=== PATIENT | female | born 1950 | race Caucasian/White ===

== ENCOUNTER 2019-01-22 11:40 | Emergency (ER) | payer MEDICARE, BC ==
[2019-01-22 11:56] VITALS: BP 112/63
--- NOTE | 2019-01-22 12:17 | UC ---
Shoulder Pain HPI - HPI Summary HPI Summary: 68 y/o female presents to the urgent care c/o left shoulder pain for the past 6- 8 weeks. Pt did fall 2 weeks prior to the pain started and fell on her shoulder and left knee. Pt states she has had some massages w/o any improvement. Pt does have some limitation with left arm movement, specially raising her arm. Pt wakes from the pain every am from the pain. She has been taken Aleve and Tylenol PO daily which seems to help at times. Pt states also mild numbness and tingling at times. Pain today is dull, 3/10 w/o any radiation. Pt denies fever, SOB, dizziness, chest pain,abdominal pain, N/V/D, neck pain - History of Current Complaint Chief Complaint: UCUpperExtremity Stated Complaint: L SHOULDER PAIN Time Seen by Provider: 01/22/19 12:00 Hx Obtained From: Patient ?: No Onset/Duration: Gradual Onset, Lasting Weeks - 2 months, Still Present, Worse Since - 6 days ago Timing: Constant Severity Initially: Mild Severity Currently: Moderate Location Of Pain: Is Discrete @ - left shoulder Pain Intensity: 3 Pain Scale Used: 0-10 Numeric Character: Sharp Aggravating Factor(s): Movement, Lifting, Extension Alleviating Factor(s): Rest, Ice, OTC Meds Associated Signs And Symptoms: Positive: Numbness/Tingling - mild at times. Negative: Swelling, Redness, Bruising, Fever, Weakness Related History: Dominant Hand Right - Risk Factors Non-Orthopedic Risk Factor: Negative DVT Risk Factors: Negative Septic Arthritis Risk Factor: Negative - Allergies/Home Medications Allergies/Adverse Reactions: Allergies Allergy/AdvReac Type Severity Reaction Status Date / Time Penicillins Allergy Swelling Verified 01/22/19 11:57 Home Medications: Home Medications Acetaminophen [Tylenol] 650 mg PO Q4HR PRN 01/22/19 [History Confirmed 01/22/19] Atorvastatin* [Lipitor 10 MG*] 10 mg PO 1700 01/22/19 [History Confirmed ] Citalopram Hydrobromide [Celexa] 40 mg PO DAILY 01/22/19 [History Confirmed 09/11] Levothyroxine TAB* [Synthroid 150 MCG TAB*] 150 mcg PO DAILY 01/22/19 [History Confirmed 01/22/19] PMH/Surg Hx/FS Hx/Imm Hx Previously Healthy: Yes Endocrine History: Hypothyroidism, Dyslipidemia Psychological History: Anxiety, Depression - Surgical History Surgical History: None - Family History Known Family History: Positive: Hypertension Family History: Stroke - Social History Alcohol Use: Occasionally Substance Use Type: Marijuana Smoking Status (MU): Light Every Day Tobacco Smoker Review of Systems All Other Systems Reviewed And Are Negative: Yes Constitutional: Positive: Negative Skin: Positive: Negative Eyes: Positive: Negative ENT: Positive: Negative Respiratory: Positive: Negative Cardiovascular: Positive: Negative Gastrointestinal: Positive: Negative Genitourinary: Positive: Negative Motor: Positive: Negative Neurovascular: Positive: Negative Musculoskeletal: Positive: Decreased ROM - left shoulder, Other: - left shoulder pain Neurological: Positive: Negative Psychological: Positive: Negative Is Patient Immunocompromised?: No Physical Exam - Summary Physical Exam Summary: Vital Signs Reviewed: Yes GENERAL: Well-Appearing, No Pain Distress, Well-Nourished obese female w/o any apparent pain distress Eyes: Positive: Conjunctiva Clear - PERRL,EOMI ENT: Positive: Normal ENT inspection, Hearing grossly normal, Pharyngeal erythema - mild, Nasal drainage - clear, Uvula midline Neck: Positive: Supple, Nontender, No Lymphadenopathy Respiratory: Positive: Chest non-tender, Lungs clear, Normal breath sounds, No respiratory distress Cardiovascular: Positive: RRR, No Murmur, Pulses Normal, Brisk Capillary Refill Abdomen Description: Positive: Nontender, No Organomegaly, Soft. Negative: CVA Tenderness (R), CVA Tenderness (L) Bowel Sounds: Positive: Present Musculoskeletal: LF shoulder: The L shoulder is without obvious asymmetry or deformity when compared to the R shoulder. No ecchymosis and bruising, no crepitus. No bony deformity or prominence of humeral head. No erythema, warmth. No Point Tenderness to palpation over the clavicle, or scapula. positive tenderness over Acromioclavicular joint and humeral head with mild swelling, NT to palpation of the bicipital groove . NT to palpation of the muscles of the sternocleidomastoid, pectoralis, biceps/triceps, deltoid, trapezius, . Limited ROM due to pain especially in adduction and abduction.on both passive and active, internal/external rotation, flexion/extension. "empty can and drop arm test unable to perform due to pain. No axillary tenderness or lymphadenopathy. Normal sensation over the deltoid and fingers. Distal motor and neurovascular status is intact. Neurological Exam: Normal Psychological Exam: Normal Skin Exam: Normal Triage Information Reviewed: Yes Vital Signs: Initial Vital Signs Temp 98.4 F 01/22/19 11:48 Pulse 73 01/22/19 11:48 Resp 16 01/22/19 11:48 BP 112/63 01/22/19 11:48 Pulse Ox 100 01/22/19 11:48 Shoulder Course/Dx - Course Course Of Treatment: 68 y/o female presents to the urgent care c/o left shoulder pain for the past 6- 8 weeks. Pt did fall 2 weeks prior to the pain started and fell on her shoulder and left knee. Pt states she has had some massages w/o any improvement. Pt does have some limitation with left arm movement, specially raising her arm. Pt wakes from the pain every am from the pain. She has been taken Aleve and Tylenol PO daily which seems to help at times. Pt states also mild numbness and tingling at times. Pain today is dull, 3/10 w/o any radiation. Pt denies fever, SOB, dizziness, chest pain,abdominal pain, N/V/D, neck pain. Hx obtained. LF shoulder X-ray ordered:IMPRESSION: OSTEOARTHRITIS. NO ACUTE OSSEOUS INJURY. IF SYMPTOMS PERSIST, RECOMMEND REPEAT IMAGING as per radiologist. Pt's Rx Naproxen PO to alleviate symptoms. Shoulder immobilized with a shoulder sling for 3-4 days. Advised to f/u with Orthopedic DR Fernandez or Sports medicine for further evaluation and treatment.D/c instructions explained. Pt understood and agreed w/ plan of care. - Differential Dx/Diagnosis Differential Diagnosis/HQI/PQRI: Contusion, Fracture (Closed), Rotator Cuff Injury, Sprain, Strain, Tendonitis Provider Diagnosis: Left shoulder pain, Osteoarthritis of left shoulder Discharge - Sign-Out/Discharge Documenting (check all that apply): Patient Departure - D/C home All imaging exams completed and their final reports reviewed: Yes - Discharge Plan Condition: Good Disposition: HOME Prescriptions: Naproxen TAB* [Naprosyn 250 mg TAB*] 250 mg PO Q8H PRN #30 tab PRN Reason: shoulder pain Patient Education Materials: Osteoarthritis (ED), Shoulder Pain (ED) Referrals: Lena Rivera MD [Primary Care Provider] - 3 Days Additional Instructions: 1-Please take Naproxen PO as directed after meals to alleviate pain and swelling. 2-Please apply ice, keep your shoulder immobilized with the shoulder sling for 3-4 days and then resume movement slowly. 3- Please f/u with Orthopedic DR Fernandez or from Sports Medicine in 3-4 days for further evaluation and treatment, you can benefit from some physical therapy . - Billing Disposition and Condition Condition: GOOD Disposition: Home
== END 2019-01-22 13:31 | disposition home or self-care (01) ==
LOC: UCCORT 11:40
DX: M19.012 Primary osteoarthritis, left shoulder (principal); E78.5 Hyperlipidemia, unspecified; E03.9 Hypothyroidism, unspecified; F41.9 Anxiety disorder, unspecified; F32.9 Major depressive disorder, single episode, unspecified
CPT/HCPCS: 99213; G0463

== ENCOUNTER 2019-07-23 09:26 | Day surgery (SDC) | payer MEDICARE, BC ==
[~2019-07-23 09:26] MED LIST: Buffered Lidocaine 1% SYRIN* 1 ML/SYRINGE INTRADERM ONE; Dexamethasone IV* 4 MG/ML 1 ML (4 MG) IV SLOW PU ONE; Famotidine IV* 10 MG/ML 2 ML (20 mg) IV ONE; Lactated Ringers 1000 ML Bag* 1,000 ML IV SCH
[2019-07-23] MEDS ORDERED: Dexamethasone IV* 4 MG/ML 1 ML (4 MG) ONE (10:08)
[2019-07-23] MEDS ORDERED: Buffered Lidocaine 1% SYRIN* 1 ML/SYRINGE INTRADERM ONE (10:08)
[2019-07-23] MEDS ORDERED: Famotidine IV* 10 MG/ML 2 ML (20 mg) ONE (10:08)
[2019-07-23] MEDS ORDERED: Clindamycin 900 MG/D5W BAG(*) 900 MG/50 ML BAG IVPB ONE (10:08)
[2019-07-23] MEDS ORDERED: Atracurium* 10 MG/ML 10 ML VIAL ONE (10:52)
[2019-07-23] MEDS ORDERED: Midazolam* 1 MG/ML 5 ML VIAL (5 MG) ONE (10:52)
[2019-07-23] MEDS ORDERED: fentaNYL* 50 MCG/ML 2 ML VIAL (100 MCG VIAL) ONE ×3 (10:52→13:37)
[2019-07-23] MEDS ORDERED: Ondansetron INJ* 2 MG/ML VIAL ONE (10:53)
[2019-07-23] MEDS ORDERED: Propofol* 10 MG/ML 20 ML BTL ONE (10:53)
[2019-07-23] MEDS ORDERED: EPINEPHRINE 1 MG/ML 1 ML VIAL ONE (11:59)
[2019-07-23] MEDS ORDERED: Bupivacaine 0.25% EPI 200,000* 30 ML SDV ONE (11:59)
[2019-07-23] MEDS ORDERED: ROPIVACAINE 5 MG/ML 30 ML BTL (0.5%) ONE (12:10)
[2019-07-23] MEDS ORDERED: oxyCODONE/Acetamin 5/325 MG* TAB PO PRN (13:33)
[2019-07-23] MEDS ORDERED: HYDROmorphone INJ1* 1 MG/ML SYRINGE IV PRN (13:33)
[2019-07-23] MEDS ORDERED: Scopolamine 1.5 mg* PATCH TRANSDERM PRN (13:33)
[2019-07-23] MEDS ORDERED: Ondansetron INJ* 2 MG/ML VIAL IV PRN (13:33)
[2019-07-23] MEDS ORDERED: DiMENhydriNATE IV* 50 MG/ML VIAL IV PUSH PRN (13:33)
[2019-07-23] MEDS ORDERED: fentaNYL* 50 MCG/ML 2 ML VIAL (100 MCG VIAL) IV PRN (13:33)
[2019-07-23] MEDS ORDERED: Naloxone* 0.4 MG/ML 1 ML VIAL IV PRN (13:33)
[2019-07-23] MEDS ORDERED: Metoprolol Tartrate IV* 1 MG/ML 5 ML VIAL ONE (13:37)
[2019-07-23 16:18] VITALS: BP 129/69
--- NOTE | 2019-07-24 20:23 | OP ---
DATE OF OPERATION: 07/23/19 - SDS DATE OF : 50 SURGEON: Alexandre Parisi MD AUTOMOTIVE SERVICE PORTER: JEAN Parmar. A physician state tested nursing assistant was required for the length of the procedure for assistance with patient positioning, retraction, instrumentation, and closure. ANESTHESIOLOGIST: Dr. Terrell. ANESTHESIA: General anesthesia, regional interscalene block anesthesia. PRE-OP DIAGNOSES: 1. Left shoulder rotator cuff tendinitis. 2. Left shoulder partial-thickness rotator cuff tendon tear, interstitial, likely, supraspinatus. 3. Left shoulder subacromial impingement and bursitis. 4. Left shoulder acromioclavicular joint osteoarthritis. 5. Left shoulder stiffness, capsulitis. 6. Possible left shoulder biceps tendinosis or superior labrum tear. POST-OP DIAGNOSES: 1. Left shoulder rotator cuff tendinitis. 2. Left shoulder rotator cuff tendon tear, supraspinatus, low-grade partial- thickness undersurface tear. 3. Left shoulder subacromial impingement and bursitis. 4. Left shoulder acromioclavicular joint osteoarthritis. 5. Left shoulder significant proximal biceps tendinosis. 6. Left shoulder stiffness, capsulitis. 7. Left shoulder focal articular cartilage injury, superior humeral head. OPERATIVE PROCEDURE: 1. Left shoulder arthroscopic rotator cuff tendon repair with Regeneten biologic patch. 2. Left shoulder arthroscopic subacromial decompression. 3. Left shoulder arthroscopic distal clavicle resection. 4. Left shoulder arthroscopic debridement articular cartilage debridement, humeral head, superior, as well as undersurface rotator cuff. 5. Left shoulder arthroscopic lysis of adhesions including debridement of rotator cuff interval along with manipulation under anesthesia. INDICATIONS: The patient is a 68-year-old woman right-hand dominant with pain for at least 7 months since a fall in November 2018. The patient failed to respond to the full spectrum of nonoperative treatment and opted for surgery. I discussed risks and potential complications of surgery. ANTIBIOTICS: Clindamycin 900 mg IV. IV FLUIDS: See Anesthesia note. [id number] TIME: 69 minutes. SPECIMEN: None. IMPLANTS: [employer] Regeneten biologic patch size large. COMPLICATIONS: None. ESTIMATED BLOOD LOSS: Minimal. DESCRIPTION OF PROCEDURE: In preoperative holding, the patient signed a written consent. Operative extremity was marked in preoperative holding. The patient underwent an interscalene regional nerve block by Dr. Terrell. The patient was next taken to the operating room where she was sedated and intubated. The patient was turned to the lateral decubitus position, left shoulder up. Axillary roll. Bony prominences padded. Lateral longitudinal traction, 15 pounds. Appropriate amount of forward flexion and abduction shoulder. Prior to being placed in the lateral decubitus position, because at the patient' s last clinic note, she had incomplete range of motion, I performed a mini time- out and then an exam under anesthesia. On my exam under anesthesia, the patient had only 160 degrees of forward flexion as it had been the case preoperatively. I therefore performed manipulation under anesthesia. This manipulation produced crackling and popping, palpable, and got her to 180 degrees of forward flexion. I then easily reached 90 degrees of external and 70 degrees of internal rotation without any further trauma to the shoulder. Once the patient was set up in the lateral decubitus position, we prepped and draped and did a surgical time-out. Placed spinal needle into the glenohumeral joint from posterior and infused 30 cc of normal saline. Then established posterior portal. Started my diagnostic arthroscopy. The patient had some grade 1 or grade 1 to 2 wear about the articular cartilage of the glenoid and humeral head. More focally about the superior aspect of the humeral head just adjacent to the supraspinatus footprint , the patient had a small focal area of articular cartilage grade 3 to 4 injury and what could be slightly unstable articular cartilage. The patient's biceps tendon was very hyperemic and swollen along the length of the biceps tendon and certainly at its anchor. Established anterior glenohumeral joint portal under direct visualization. I brought arthroscopic scissors in and released the biceps tendon at its origin. Preoperatively, the patient and I decided on biceps release rather than tenodesis. I used an arthroscopic shaver and debrided tissue in the rotator cuff interval, because of the patient's preoperative stiffness requiring manipulation under anesthesia as well. There was some element of capsulitis in this patient. I then examined the rotator cuff. There was some area of undersurface tearing approximately 5 to 6 mm in width from medial to lateral, I classified this as low grade or possibly medium grade. Really more low grade. I used an arthroscopic shaver to debride that possibly unstable articular cartilage, grade 3 to 4, and to smooth out the undersurface of the rotator cuff in that location. I marked out rotator cuff deficit with a spinal needle. Moved to the subacromial space, anterior and posterior, then established lateral and posterolateral portals under direct visualization. This patient had some subacromial bursitis, which was debrided with an arthroscopic shaver. I visualized my spinal needle. There was no bursal-sided tearing in the rotator cuff. No clear palpable weakness in that area as I probed it with a probe and switching stick. It was notable, the patient's subacromial space not having a particularly large amount of clearance between the acromion and the rotator cuff. This was along the length of the subacromial space from anterior to posterior, not just anterior where there was a clear hook visualized on preoperative imaging. This was slightly surprising. I had fully debrided all synovium off the superior aspect of the rotator cuff and was looking just at rotator cuff. I placed an arthroscopic bur and flattened out the anterior aspect of the acromion. Then, through a lateral portal, I placed a Regeneten patch size large and tipped in place with PLLA makeda. The patch was incredibly stable appearing. I next moved to the AC joint and debrided synovitic tissue with a cautery device and then removed 8 mm of the distal end of the clavicle with an arthroscopic bur. I then rechecked the patch and found it again to be very stable. Removed instruments and fluid from subacromial space. Closed skin incisions with figure -of- eight and 12 stitches using nylon 3-0 suture. Xeroform, 4x4s, ABDs, foam tape, sling with abduction pillow. The patient was awakened, extubated, and transferred to the PACU. DISPOSITION: Percocet as needed for pain control. Physical therapy. Sling. Follow up in 10 to 14 days. [id number]/[facility] #: [id number] KELIN
== END 2019-07-23 16:22 | disposition home or self-care (01) ==
LOC: OR 09:26
PROVIDERS: ATTEND Orthopaedic Surgery
DX: S46.012A Strain of muscle(s) and tendon(s) of the rotator cuff of left shoulder, initial encounter (principal); M75.42 Impingement syndrome of left shoulder; M75.52 Bursitis of left shoulder; M19.012 Primary osteoarthritis, left shoulder; M75.22 Bicipital tendinitis, left shoulder; G89.18 Other acute postprocedural pain; W19.XXXA Unspecified fall, initial encounter; Y92.9 Unspecified place or not applicable; G47.33 Obstructive sleep apnea (adult) (pediatric); E03.9 Hypothyroidism, unspecified; R25.1 Tremor, unspecified; F32.9 Major depressive disorder, single episode, unspecified; F17.210 Nicotine dependence, cigarettes, uncomplicated; R73.03 Prediabetes
CPT/HCPCS: C1713; J1100; J2250; J2405; J2704; J2795; J3010; J3490

== ENCOUNTER 2019-09-23 14:44 | Emergency (ER) | payer MEDICARE, BC ==
--- OUTSIDE RECORDS SUMMARY | 2019-09-23 16:17 | XMS REPORT | Continuity of Care Document ---
:1950 External Reference #:[id number] Author Name Alexandre Parisi MD (transmitted by agent of provider Heidi Melara) Address [address] [place] [id number] Care Team Providers Name Role Phone Lena Rivera MD - Internal Medicine Care Team Information Bus Assistant Problems Description No Information Available Social History Type Date Description Comments Sex Unknown ETOH Use Occasionally consumes alcohol Tobacco Use Start: Unknown End: Patient is a former Unknown smoker Recreational Drug Use Sporadically uses used to see if it Marijuana helped with hand tremors-ineffective Smoking Status Reviewed: 08/06/19 Patient is a former smoker Exercise Type/Frequency Exercises regularly walks dog 3-4 times per week Allergies, Adverse Reactions, Alerts Active Allergies Reaction Severity Comments Date Penicillin 09/19/2018 Medications Active Medications SIG Qnty Indications Ordering Provider Date Oxycodone-Acetaminophen 1-2 tabs by 30tabs Luca Regalado MD 07/23/2019 mouth every 4 5-325mg Tablets hours for pain Celexa 1 by mouth Unknown 40mg Tablets every day Levothyroxine Sodium 1 by mouth Unknown 112mcg every day Tablets Lipitor 1 every at Unknown 20mg Tablets night Medications Administered in Office Medication SIG Qnty Indications Ordering Provider Date Depomedrol 40MG Ava Leon MD 02/26/2019 Injection Immunizations Description No Information Available Vital Signs Date Vital Result Comment 08/06/2019 1:58pm Height 66 inches 5'6" Weight 199.00 lb stated Heart Rate 78 /min BP Systolic 128 mmHg BP Diastolic 72 mmHg Respiratory Rate 12 /min Body Temperature 98.8 F Pain Level 1 to two, sporatic BMI (Body Mass Index) 32.1 kg/m2 06/27/2019 9:14am Height 66 inches 5'6" Weight 199.00 lb Heart Rate 72 /min BP Systolic 118 mmHg BP Diastolic 62 mmHg Respiratory Rate 18 /min Body Temperature 97.5 F Pain Level 3 sharp pain with movement BMI (Body Mass Index) 32.1 kg/m2 Results Description No Information Available Procedures Date Code Description Status 02/26/2019 92154 Inj/Aspir Major JT Or Bursa W/ US Completed 02/06/2019 27114 Ultrasound, Extremity, Nonvascular, Real-Time W/Image Completed Doc,Limited Medical Devices Description No Information Available Encounters Type Date Location Provider Dx Diagnosis Office Visit 06/27/2019 [facility] Alexandre Honeycutt S46.012D Strain of 9:00a at MD anjelica Yarbrough/tend the rotator cuff of left shoulder, subs M75.42 Impingement syndrome of left shoulder Office Visit 06/11/2019 2:50p [facility] Ava Leon [id number] Strain of Of Mixer Tender AT MD dejesus/kirsty the [place] rotator cuff of left shoulder, subs Office Visit 05/15/2019 9:50a [facility] Ava Leon [id number] Strain of Of Mixer Tender AT MD dejesus/tend the [place] rotator cuff of left shoulder, subs Office Visit 05/08/2019 9:50a [facility] Ava Leon [id number] Strain of Of Mixer Tender AT MD dejesus/tend the [place] rotator cuff of left shoulder, subs Office Visit 03/27/2019 11:30a Sports Medicine Ava Leon [id number] Strain of Of Mixer Tender AT MD dejesus/tend the [place] rotator cuff of left shoulder, subs Office Visit 02/26/2019 1:30p [facility] Medicine Ava Leon [id number] Strain of Of Mixer Tender AT MD dejesus/tend the [place] rotator cuff of left shoulder, subs Office Visit 02/06/2019 10:10a [facility] Medicine Carey Rider6.012A Strain of Of Mixer Tender AT MD dejesus/kirsty the [place] rotator cuff of left shoulder, init Assessments Date Code Description Provider 08/06/2019 S46.012D Strain of muscle(s) and tendon(s) of the Alexandre Parisi MD rotator cuff of left shoulder, subsequent encounter 08/06/2019 M75.42 Impingement syndrome of left shoulder Alexandre Parisi MD 06/27/2019 S46.012D Strain of muscle(s) and tendon(s) of the Alexandre Parisi MD rotator cuff of left shoulder, subsequent encounter 06/27/2019 M75.42 Impingement syndrome of left shoulder Alexandre Parisi MD 06/11/2019 S46.012D Strain of muscle(s) and tendon(s) of the Ava Leon MD rotator cuff of left shoulder, subsequent encounter 05/15/2019 S46.012D Strain of muscle(s) and tendon(s) of the Ava Leon MD rotator cuff of left shoulder, subsequent encounter 05/08/2019 S46.012D Strain of muscle(s) and tendon(s) of the Ava Leon MD rotator cuff of left shoulder, subsequent encounter 03/27/2019 S46.012D Strain of muscle(s) and tendon(s) of the Ava Leon MD rotator cuff of left shoulder, subsequent encounter 02/26/2019 S46.012D Strain of muscle(s) and tendon(s) of the Ava Leon MD rotator cuff of left shoulder, subsequent encounter 02/06/2019 S46.012A Strain of muscle(s) and tendon(s) of the Ava Leon MD rotator cuff of lef Plan of Treatment Future Appointment(s):09/03/2019 1:15 pm - Alexandre Parisi MD at [facility]/06/2019 - Alexandre Parisi, [id number] Strain of muscle(s) and tendon(s) of the rotator cuff of left shoulder, subsequent encounterFollow up:Follow up: 4 [id number] Impingement syndrome of left shoulder Functional Status Description No Information Available Mental Status Description No Information Available Referrals Refer to Dr Reason for Referral Status Appt Date Alexandre Parisi MD Persistent rotator cuff tendinosis with Sent 2018 associated interstitial tearing. Failed conservative treatment of injection and physical therapy. [address] [place] [address] [phone]
--- OUTSIDE RECORDS SUMMARY | 2019-09-23 16:17 | XMS REPORT | Continuity of Care Document ---
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 [phone] Problems Description No Information Available Social History Type Date Description Comments Sex Unknown ETOH Use Occasionally consumes alcohol Tobacco Use Start: Unknown End: Patient is a former Unknown smoker Recreational Drug Use Sporadically uses used to see if it Marijuana helped with hand tremors-ineffective Smoking Status Reviewed: 09/03/19 Patient is a former smoker Exercise Type/Frequency Exercises regularly walks dog 3-4 times per week Allergies, Adverse Reactions, Alerts Active Allergies Reaction Severity Comments Date Penicillin 09/19/2018 Medications Active Medications SIG Qnty Indications Ordering Provider Date Celexa 1 by mouth Unknown 40mg Tablets every day Levothyroxine Sodium 1 by mouth Unknown 112mcg every day Tablets Lipitor 1 every at Unknown 20mg Tablets night History Medications Oxycodone-Acetaminophen 1-2 tabs by 30tabs Luca Regalado, 07/23/2019 - 5-325mg Tablets mouth every MD 09/02/2019 4 hours for pain Medications Administered in Office Medication SIG Qnty Indications Ordering Provider Date Depomedrol 40MG Ava Leon MD 02/26/2019 Injection Immunizations Description No Information Available Vital Signs Date Vital Result Comment 09/03/2019 1:19pm Height 66 inches 5'6" Weight 199.00 lb Heart Rate 80 /min BP Systolic 106 mmHg BP Diastolic 65 mmHg Respiratory Rate 18 /min Pain Level 1 BMI (Body Mass Index) 32.1 kg/m2 08/06/2019 1:58pm Height 66 inches 5'6" Weight 199.00 lb stated Heart Rate 78 /min BP Systolic 128 mmHg BP Diastolic 72 mmHg Respiratory Rate 12 /min Body Temperature 98.8 F Pain Level 1 to two, sporatic BMI (Body Mass Index) 32.1 kg/m2 Results Description No Information Available Procedures Date Code Description Status 07/23/2019 36260 Arthroscopy Shoulder,W/Rotator Cuff Repair Completed 07/23/2019 43857 Arthroscopy Shoulder,W/Rotator Cuff Repair Completed 07/23/2019 97688 Arthroscopy,Shoulder Decompression Of Subacromial Space Completed W/Acromio 07/23/2019 74752 Arthroscopy,Shoulder Decompression Of Subacromial Space Completed W/Acromio 07/23/2019 73783 Arthroscopy,Shoulder,Distal Claviculectomy Incl Dist Completed Articular SR 07/23/2019 28566 Arthroscopy,Shoulder,Distal Claviculectomy Incl Dist Completed Articular SR Medical Devices Description No Information Available Encounters Type Date Location Provider Dx Diagnosis Office Visit 06/27/2019 [facility] Alexandre Honeycutt S46.012D Strain of 9:00a at MD anjelica Yarbrough/kirsty the rotator cuff of left shoulder, subs M75.42 Impingement syndrome of left shoulder Office Visit 06/11/2019 2:[facility] Ava Leon S46.012D Strain of Of Desk Maker AT MD dejesus/kirsty the [place] rotator cuff of left shoulder, subs Office Visit 05/15/2019 9:50a [facility] Ava Leon S46.012D Strain of Of Desk Maker AT MD dejesus/kirsty the [place] rotator cuff of left shoulder, subs Office Visit 05/08/2019 9:50a [facility] Ava Leon S46.012D Strain of Of Desk Maker AT MD dejesus/kirsty the [place] rotator cuff of left shoulder, subs Office Visit 03/27/2019 11:30a [facility] Ava Leon S46.012D Strain of Of Desk Maker AT MD dejesus/kirsty the [place] rotator cuff of left shoulder, subs Assessments Date Code Description Provider 09/03/2019 S46.012D Strain of muscle(s) and tendon(s) of the Alexandre Parisi MD rotator cuff of left shoulder, subsequent encounter 08/06/2019 S46.012D Strain of muscle(s) and tendon(s) of the Alexandre Parisi MD rotator cuff of left shoulder, subsequent encounter 08/06/2019 M75.42 Impingement syndrome of left shoulder Alexandre Parisi MD 07/23/2019 S46.012D Strain of muscle(s) and tendon(s) of the Alexandre Parisi MD rotator cuff of left shoulder, subsequent encounter 07/23/2019 M75.42 Impingement syndrome of left shoulder Alexandre Parisi MD 07/23/2019 S46.012D Strain of muscle(s) and tendon(s) of the JEAN Parmar rotator cuff of left shoulder, subsequent encounter 07/23/2019 M75.52 Bursitis of left shoulder Alexandre Parisi MD 07/23/2019 M75.42 Impingement syndrome of left shoulder JEAN Parmar 07/23/2019 M75.22 Bicipital tendinitis, left shoulder Alexandre Parisi MD 07/23/2019 M19.012 Primary osteoarthritis, left shoulder Alexandre Parisi MD 07/23/2019 M75.52 Bursitis of left shoulder John Huitron PA 07/23/2019 M75.22 Bicipital tendinitis, left shoulder John Huitron PA 07/23/2019 M19.012 Primary osteoarthritis, left shoulder John Huitron PA 06/27/2019 S46.012D Strain of muscle(s) and tendon(s) [...] rotator cuff of left shoulder, subsequent encounter Plan of Treatment Future Appointment(s):10/15/2019 3:00 pm - Alexandre Parisi MD at [facility] at [facility]3709/03/2019 - Alexandre Parisi, MDS46.012D Strain of muscle(s) and tendon(s) of the rotator cuff of left shoulder, subsequent encounterFollow up:Follow up: 6 wks Functional Status Description No Information Available Mental Status Description No Information Available Referrals Refer to Dr Reason for Referral Status Appt Date Alexandre Parisi MD Persistent rotator cuff tendinosis with Sent 2018 associated interstitial tearing. Failed conservative treatment of injection and physical therapy. [address] [place] [address] [phone]
--- OUTSIDE RECORDS SUMMARY | 2019-09-23 16:17 | XMS REPORT | Continuity of Care Document ---
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 [phone] Problems Description No Information Available Social History Type Date Description Comments Sex Unknown ETOH Use Currently consumes alcohol socially Tobacco Use Start: Unknown Patient denies history of smoking Recreational Drug Use Former Drug User Recreational Drug Use Marijuana Smoking Status Reviewed: 09/16/19 Patient denies history of smoking Exercise Type/Frequency Exercises sporadically Allergies, Adverse Reactions, Alerts Active Allergies Reaction Severity Comments Date Penicillin 05/07/2018 Medications Active Medications SIG Qnty Indications Ordering Provider Date Levothyroxine Sodium sig 1 po qam Karlie Marshall MD 112mcg Tablets Citalopram Hydrobromide sig 1 po qd Karlie Marshall MD 40mg Tablets Shingrix Inject Im Utd Unknown 50mcg/0.5ML Suspension Rec Contour Next Blood Josh Marshall MD Glucose Test Strips Debby Microlet Lancets Josh Marshall MD Misc Calcium 600 1 by mouth qhs Unknown 600mg Tablets Multivitamin Adults 1 by mouth every Unknown day Tablets Fioricet one by mouth q4-6 Unknown 50-300-40mg hours as needed Capsules migraine headache Tylenol prn needed Unknown 325mg Tablets Zyrtec Allergy 1 tab by mouth Unknown 10mg Tablets every night prn Immunizations Description No Information Available Vital Signs Description No Information Available Results Description No Information Available Procedures Date Code Description Status 09/16/2019 45403 Eye Exam Est Patient Comprehensive Completed Medical Devices Description No Information Available Encounters Description No Information Available Assessments Date Code Description Provider 09/16/2019 H43.813 Vitreous degeneration, bilateral Rod Quigley MD 09/16/2019 Z96.1 Presence of intraocular lens Rod Quigley MD Plan of Treatment 09/16/2019 - Rod Quigley MDH43.813 Vitreous degeneration, bilateralComments:- no sign of retinal break or tear- review signs and symptoms of retinal detachment-please call withincreasing floaters, flashes, or field cuts- left eye ; asteroid hyalosis, stableFollow up:1 year examZ96.1 Presence of intraocular lensComments:- s/p ce, iol left eye 07/11/18- s/p ce, iol right eye 2017 - provided updated rx for glasses; would like to try distance only Functional Status Functional Condition Comment Date Status Cpap Active Mental Status Description No Information Available Referrals Description No Information Available
[2019-09-23 16:25] VITALS: BP 120/54
--- NOTE | 2019-09-23 16:35 | UC ---
Abdominal Pain Female HPI - HPI Summary HPI Summary: 69-year-old female who is somewhat vague about her symptoms however over the past 2 weeks she states she's had a "sour taste when I burp". She states past couple of days she's had some loose stools. She denies any fever however she states occasionally she'll feel chilled. She denies any urinary symptoms. She denies any cold symptoms. She's had nausea today and has only eaten 2 pieces of toast however before today she states her appetite has been normal. She denies any specific abdominal pain however states she has been somewhat bloated recently. - History of Current Complaint Chief Complaint: UCGeneralIllness Stated Complaint: FLU SYMP Time Seen by Provider: 09/23/19 16:25 Hx Obtained From: Patient ?: No Onset/Duration: Gradual Onset, Lasting Weeks - Patient has had intermittent symptoms over the past 2 weeks., Still Present, Other - Patient called her physician today to be evaluated and the physician sent her here. Timing: Constant Severity Initially: Mild Severity Currently: Mild Pain Intensity: 3 Location: Other - No specific location for abdominal pain. Radiates: No Aggravating Factor(s): Nothing Alleviating Factor(s): Nothing Associated Signs and Symptoms: Positive: Nausea, Other: - Loose stools past 2 days. Allergies/Adverse Reactions: Allergies Allergy/AdvReac Type Severity Reaction Status Date / Time Penicillins Allergy Swelling Verified 09/23/19 16:25 Home Medications: Home Medications Acetaminophen [Tylenol] 650 mg PO Q4HR PRN 01/22/19 [History Confirmed 09/23/19] Atorvastatin* [Lipitor 10 MG*] 20 mg PO QPM 01/22/19 [History Confirmed 09/23/19 ] Citalopram Hydrobromide [Celexa] 40 mg PO QAM 01/22/19 [History Confirmed ] Levothyroxine TAB* [Synthroid 150 MCG TAB*] 150 mcg PO QAM 01/22/19 [History Confirmed 09/23/19] Naproxen TAB* [Naprosyn 250 mg TAB*] 250 mg PO Q8H PRN #30 tab 01/22/19 [Rx Confirmed 09/23/19] Calcium + D3 ER Tablet 1 tab PO QPM 07/23/19 [History Confirmed 09/23/19] Cinnamon 1 tab PO QPM 07/23/19 [History Confirmed 09/23/19] Sucralfate TAB* [Carafate*] 1 gm PO QID 09/23/19 [History Confirmed 09/23/19] PMH/Surg Hx/FS Hx/Imm Hx Previously Healthy: Yes Endocrine History: Thyroid Disease, Dyslipidemia - Surgical History Surgical History: Yes Surgery Procedure, Year, and Place: TUBAL LIGATION. 2007-LEFT FOOT- SURGERY FOR PLANTAR FASCITIS. Shoulder surgery 07/11 - Family History Known Family History: Positive: Hypertension Family History: Stroke - Social History Occupation: Retired Alcohol Use: Occasionally Substance Use Type: None Smoking Status (MU): Light Every Day Tobacco Smoker Amount Used/How Often: OFF AND ON SEVERAL YEARS-MOST RECENTLY FOR THE PAT 2 YEARS Have You Smoked in the Last Year: No Review of Systems All Other Systems Reviewed And Are Negative: Yes Constitutional: Positive: Chills Gastrointestinal: Positive: Diarrhea - Loose stools the past 2 days., Nausea - Nausea only today Is Patient Immunocompromised?: No Physical Exam Triage Information Reviewed: Yes Appearance: Well-Appearing, No Pain Distress, Well-Nourished Vital Signs: Initial Vital Signs Temp 97.8 F 09/23/19 16:20 Pulse 72 09/23/19 16:20 Resp 16 09/23/19 16:20 BP 120/54 09/23/19 16:20 Pulse Ox 99 09/23/19 16:20 Vital Signs Reviewed: Yes Eyes: Positive: Conjunctiva Clear ENT: Positive: Pharynx normal, TMs normal, Uvula midline Neck: Positive: Supple, Nontender, No Lymphadenopathy Respiratory: Positive: Lungs clear, Normal breath sounds, No respiratory distress, No accessory muscle use Cardiovascular: Positive: RRR, No Murmur, Pulses Normal, Brisk Capillary Refill Abdomen Description: Positive: No Organomegaly, Soft, Guarding - Guarding in the right lower quadrant on palpation., Other: - Right lower quadrant tenderness on palpation. Mild tenderness on palpation lower mid abdomen.. Negative: CVA Tenderness (R), CVA Tenderness (L), Distended, Hepatomegaly, Splenomegaly Bowel Sounds: Positive: Hyperactive Musculoskeletal Exam: Normal Neurological Exam: Normal Psychological Exam: Normal Skin Exam: Normal Abd Pain Female Course/Dx - Course Course Of Treatment: I'm referring the patient to the emergency room for evaluation of her right lower quadrant abdominal pain. She was advised not to eat or drink anything until she is evaluated in the emergency room. She did state she has to go home first and make sure that someone is available to care for her 99-year-old mother for whom she cares. She did reassure me she will go to the emergency room this evening. - Differential Dx/Diagnosis Provider Diagnosis: RLQ abdominal pain Discharge ED - Sign-Out/Discharge Documenting (check all that apply): Patient Departure All imaging exams completed and their final reports reviewed: No Studies - Discharge Plan Condition: Fair Disposition: HOME-RECOMMEND TO ED Referrals: Lena Rivera MD [Primary Care Provider] - Additional Instructions: After the evaluation by the nurse practitioner, it is recommended that you go to the emergency room for further evaluation of the abdominal pain where you should receive additional testing that can be completed in the emergency department. It is recommended that you go directly to the emergency department. This evaluation may include blood work or imaging. This testing will be directed and decided by the provider that evaluates you within the emergency department. If pain becomes worse, you feel lightheaded or you develop uncontrolled vomiting, or have any other concerns while you are driving to the emergency room, please char puller and call 911. - Billing Disposition and Condition Condition: FAIR Disposition: Home-Recommend to ED - Attestation Statements Provider Attestation: This patient was not seen by me. I was available for consult. Chart reviewed. SAMI
== END 2019-09-23 16:40 | disposition home health service (06) ==
LOC: UCCORT 14:44
DX: R10.31 Right lower quadrant pain (principal); R11.0 Nausea; E07.9 Disorder of thyroid, unspecified; R19.7 Diarrhea, unspecified; F17.210 Nicotine dependence, cigarettes, uncomplicated; Z88.0 Allergy status to penicillin; Z79.890 Hormone replacement therapy
CPT/HCPCS: 99212; G0463